=== PATIENT | female | born 1955 | race Caucasian/White ===

== ENCOUNTER 2016-12-21 12:00 | Emergency (ER) | payer MEDICARE, OTHER ==
[~2016-12-21 12:00] MED LIST: NITROSTAT 0.425 TAB SL
[2016-12-21 13:35] LABS: HEMOGLOBIN 11.5 gm/dl (12.3-15.3); RED BLOOD COUNT 4.5 M/UL (4.00-5.10); WHITE BLOOD COUNT 5.3 K/UL (4.5-11.0)
[2016-12-21 13:43] LABS: BUN/CREATININE RATIO 16 (0-10)
== END 2016-12-21 18:05 | disposition home or self-care (01) ==
LOC: ER1 12:00
PROVIDERS: Family Medicine
DX: R07.9 Chest pain, unspecified (principal); R06.02 Shortness of breath; R61 Generalized hyperhidrosis; I25.2 Old myocardial infarction; I10 Essential (primary) hypertension; K21.9 Gastro-esophageal reflux disease without esophagitis; E78.5 Hyperlipidemia, unspecified; F17.210 Nicotine dependence, cigarettes, uncomplicated; Z88.0 Allergy status to penicillin; Z91.041 Radiographic dye allergy status; Z79.82 Long term (current) use of aspirin; Z79.899 Other long term (current) drug therapy
CPT/HCPCS: 36415; 71010; 80053; 82550; 82553; 83874; 84484; 85025; 93005; 96361; 96374; 96375; 99285; J1200; J2930; J7050; Q9963

== ENCOUNTER → 2022-01-17 | Outpatient (CLI) | payer MEDICARE, OTHER | LOC: KOH-I 11:30 | DX: R10.31 Right lower quadrant pain (principal) | CPT/HCPCS: 74176 ==